=== PATIENT | male | born 1950 | race Caucasian/White ===

== ENCOUNTER 2022-02-17 09:28 | Outpatient (CLI) | payer MEDICARE, SELFPAY ==
[2022-02-17 14:09] LABS: Chloride* 97 mmol/L (96-114); Sodium* 132 mmol/L (135-149)
[2022-02-17 14:11] LABS: Creatinine* 0.6 mg/dL (0.5-1.5); Estimated Glomerular Filt Rate 104 ml/min
[2022-02-17 14:12] LABS: Blood Urea Nitrogen* 14 mg/dL (7-30); Calcium* 9.5 mg/dL (8.4-10.6); Carbon Dioxide* 29 mmol/L (20-32); Glucose* 101 mg/dL (60-115)
[2022-02-17 14:24] LABS: Potassium* 4.8 mmol/L (3.6-5.1)
== END 2022-02-17 09:29 | disposition home or self-care (01) ==
LOC: LONREF 09:29
PROVIDERS: PCP Family Medicine; Visit Provider Family Medicine
DX: Z01.818 Encounter for other preprocedural examination (principal)
CPT/HCPCS: 80048

== ENCOUNTER 2022-12-18 08:17 | Outpatient (CLI) | payer MEDICARE, SELFPAY ==
[2022-12-18 10:41] VITALS: BP 136/77; PULSE 107; RESP 18
[2022-12-18] MEDS: REGADENOSON 0.4 MG/5 ML SYRINGE IVP (11:08)
[2022-12-18] MEDS: SODIUM CHLORIDE 0.9 % (FLUSH) 10 ML SYRINGE IVF (11:09)
--- NOTE | 2022-12-18 15:15 | W.PM.STED ---
Stress Test Note Date Date of test: 12/18/22 Providers Primary care provider: Kelechi Castaneda Stress test physician: Catalino Johnson Stress Test Note Stress test ordered: Lexiscan Indication for test: Abnormal echo Stress test medicine: Lexiscan Results discussion: Patient presents for the above test, after discussion risks benefits side effects he would like to proceed cardiac stress test medical history form is reviewed. Following normal protocol for Lexiscan. Patient's pretest EKG shows normal sinus rhythm normal EKG, no acute ST wave changes, ventricular rate 88, blood pressure 156/77, standard Lexiscan protocol is employed over a time course of 5 minutes, there were no complications, he had no subjective symptoms such as chest pain or any other anginal equivalent, review of the let her graphic portion shows no dysrhythmias no ST wave changes Impression: Negative electrographic portion of Lexiscan Follow up suggested: Await nuclear images, they will be over read by nuclear Medicine and Cardiology, clinical correlation with these will be needed, patient left this testing facility in good condition
== END 2022-12-18 11:10 | disposition home or self-care (01) ==
LOC: STRESS 08:18
PROVIDERS: PCP Family Medicine; Visit Provider Family Medicine
DX: R93.1 Abnormal findings on diagnostic imaging of heart and coronary circulation (principal); E78.49 Other hyperlipidemia
CPT/HCPCS: 78452; 93016; 93017; A9500; J2785

== ENCOUNTER 2022-12-22 08:40 | Outpatient (CLI) | payer MEDICARE, SELFPAY ==
--- NOTE | 2022-12-22 08:45 | CRLHL7_ITS ---
For Patients: As a result of the Cures Act, medical imaging exams and procedure reports are released immediately into your electronic medical record. You may view this report before your referring provider. If you have questions, please contact your health care provider. INDICATION: Right thyroid nodule incidentally noted on an outside CT at another institution. TECHNIQUE: Directed thyroid ultrasound. COMPARISON: None. No correlative studies either. FINDINGS: The right thyroid lobe measures 4.9 x 1.9 x 1.8 cm. The left thyroid lobe measures 3.7 x 1.1 x 1.3 cm. The isthmus measures 0.3 cm. Within the mid right thyroid gland, there is a 3.1 x 1.6 x 1.4 cm solid hypervascular hypoechoic to isoechoic nodule with a few tiny calcifications. TI RADS Category 4. FNA if greater than or equal to 1.5. Follow if greater than or equal to 1.0. IMPRESSION: Solid slightly irregular hypervascular nodule mid right thyroid gland with a few tiny calcifications. Fine-needle aspiration/biopsy is recommended. ACR TI-[email or web address] TR4: Moderately Suspicious FNA if greater than or equal to 1.5 cm Follow if greater than or equal to 1 cm Dictated by Sage Ahuja MD @ 12/22/2022 11:37:48 AM (Electronically Signed)
== END 2022-12-22 08:41 | disposition home or self-care (01) ==
LOC: US 08:41
PROVIDERS: PCP Family Medicine; Visit Provider Family Medicine
DX: E04.1 Nontoxic single thyroid nodule (principal); R93.1 Abnormal findings on diagnostic imaging of heart and coronary circulation
CPT/HCPCS: 76536

== ENCOUNTER 2022-12-30 10:06 | Outpatient (CLI) | payer MEDICARE, SELFPAY ==
--- NOTE | 2022-12-30 10:15 | CRLHL7_ITS ---
For Patients: As a result of the Cures Act, medical imaging exams and procedure reports are released immediately into your electronic medical record. You may view this report before your referring provider. If you have questions, please contact your health care provider. INDICATION : Right thyroid nodule. TECHNIQUE : Ultrasound guided fine needle aspiration of thyroid nodule. COMPARISON: 12/22/22 FINDINGS : PROCEDURE: After the informed consent and time-out, multiple fine needle aspirations were obtained from the thyroid nodule. Fine needle performed. 25 gauge needles were used. Lidocaine was used for local anesthesia. The preliminary cytology was adequate for interpretation. Real-time imaging was used for guidance and needle placement. Post imaging ultrasound demonstrates no immediate complication. IMPRESSION : Successful fine needle aspiration of right thyroid nodule. Dictated by David Durbin MD @ 12/30/2022 11:46:26 AM (Electronically Signed)
== END 2022-12-30 10:07 | disposition home or self-care (01) ==
LOC: US 10:07
PROVIDERS: PCP Family Medicine; Visit Provider Family Medicine
DX: E04.1 Nontoxic single thyroid nodule (principal)
CPT/HCPCS: 10005; 88173

== ENCOUNTER 2023-02-20 09:24 | Outpatient (CLI) | payer MEDICARE, SELFPAY | END 2023-02-20 09:25 | disposition home or self-care (01) | LOC: NFLDREF 02-22 20:45 | PROVIDERS: PCP Family Medicine; Referring Provider Family Medicine; Visit Provider Family Medicine | DX: R19.7 Diarrhea, unspecified (principal) | CPT/HCPCS: 87045; 87046; 87177; 87209; 87427; 87493 ==

== ENCOUNTER 2024-01-15 08:50 | Outpatient (CLI) | payer MEDICARE, SELFPAY | END 2024-01-15 08:51 | disposition home or self-care (01) | PROVIDERS: PCP Family Medicine; Visit Provider Family Medicine | DX: E78.5 Hyperlipidemia, unspecified (principal); E04.1 Nontoxic single thyroid nodule; Z13.21 Encounter for screening for nutritional disorder | CPT/HCPCS: 80048; 80061; 82607; 84443 ==

== ENCOUNTER 2024-12-19 09:13 | Outpatient (CLI) | payer MEDICARE, SELFPAY | END 2024-12-19 09:14 | disposition home or self-care (01) | PROVIDERS: PCP Family Medicine; Visit Provider Family Medicine | DX: E78.2 Mixed hyperlipidemia (principal); Z12.5 Encounter for screening for malignant neoplasm of prostate | CPT/HCPCS: 80048; 80061; G0103 ==

== ENCOUNTER 2025-01-03 11:25 | Outpatient (CLI) | payer MEDICARE, SELFPAY | END 2025-01-03 11:26 | disposition home or self-care (01) | PROVIDERS: PCP Family Medicine; Visit Provider Family Medicine | DX: M10.9 Gout, unspecified (principal); M13.131 Monoarthritis, not elsewhere classified, right wrist | CPT/HCPCS: 84550; 86200; 86431 ==